=== PATIENT | female | born 1985 | race American Indian/Alaskan Native ===

== ENCOUNTER 2018-10-16 10:39 | Outpatient (CLI) | payer MEDICAID ==
[2018-10-16 11:13] VITALS: BP 131/74
[2018-10-16] MEDS ORDERED: LACTATED RINGERS 1,000 ML ONE (11:37)
[2018-10-16 12:14] LABS: Bilirubin,Urine NEG (Negative); Blood,Urine NEG (Negative); Color,Urine Amber (Yellow); Mucus,Urine 2+ /HPF
[2018-10-16] MEDS ORDERED: LACTATED RINGERS 1,000 ML IV ONE (12:51)
[2018-10-16] MEDS ORDERED: ROCEPHIN/NS 1 GM/50 ML 1 GM/50 ML BAG IV ONE (13:00)
--- NOTE | 2018-10-16 13:55 | Ultrasound Report ---
ULTRASOUND OB LIMITED HISTORY: Patient fell, evaluate for placental abruption. TECHNIQUE: Transabdominal ultrasound with color Doppler imaging. FINDINGS: A single intrauterine is identified in breech position. Heart rate measures 177 bpm. Amniot ic fluid volume appears normal. The placenta is anterior, grade 1. There is no evidence for abruption . IMPRESSION: No evidence for abruption. Signer Name: Mingo Lyon Jr, MD Signed: 10/16/2018 1:50 PM Workstation Name: [id number]
[2018-10-16 14:11] LABS: INR 1.02 (0.87-1.13)
[2018-10-16 14:12] LABS: Partial Thromboplastin Time 22.5 Sec. (24.2-36.6)
== END 2018-10-16 14:52 | disposition home or self-care (01) ==
LOC: TRG 10:39
PROVIDERS: ATTEND Obstetrics & Gynecology
DX: O26.892 Other specified pregnancy related conditions, second trimester (principal); R10.31 Right lower quadrant pain; O32.1XX0 Maternal care for breech presentation, not applicable or unspecified; O47.02 False labor before 37 completed weeks of gestation, second trimester; O99.512 Diseases of the respiratory system complicating pregnancy, second trimester; J45.909 Unspecified asthma, uncomplicated; Z3A.24 24 weeks gestation of pregnancy
CPT/HCPCS: 36415; 59025; 76815; 81001; 85610; 85730; 87086; 96365; J0696; J7120; 96360

== ENCOUNTER 2019-01-16 15:13 | Inpatient (IN) | payer MEDICAID ==
[2019-01-16] MEDS ORDERED: FAMOTIDINE 20 MG/2 ML INJ IV ONE ×2 (16:49→16:51)
[2019-01-16] MEDS ORDERED: METOCLOPRAMIDE 10 MG/2 ML INJ IV ONE (16:51)
[2019-01-16] MEDS ORDERED: BICITRA ORAL LIQD 30ML PO ONE (16:51)
[2019-01-16] MEDS ORDERED: BICITRA ORAL LIQD 30ML ONE (16:52)
[2019-01-16] MEDS ORDERED: ceFAZolin/Water 2 GM/20 ML 2 GM/20 ML SYRINGE IV NR (17:00)
[2019-01-16] MEDS ORDERED: LACTATED RINGERS 1,000 ML IV SCH (17:00)
[2019-01-16] MEDS ORDERED: OXYTOCIN 20 UNIT/1000ML DRIP 20 UNITS/1,000 ML BAG IV SCH ×2 (17:00→20:00)
[2019-01-16 17:21] LABS: Basophils % (Auto) 0.2 % (0.0-1.8); Eosinophils % (Auto) 0.2 % (0.0-4.3); Hematocrit 34.3 % (30.3-42.9); Hemoglobin 11.2 gm/dl (10.1-14.3); Lymphocytes # (Auto) 2.9 K/mm3 (1.2-5.4); Lymphocytes % (Auto) 25.6 % (13.4-35.0); Mean Corpuscular HGB Conc 33 % (30-34); Mean Corpuscular Volume 83 fl (79-97); Monocytes # (Auto) 0.6 K/mm3 (0.0-0.8); Monocytes % (Auto) 5.7 % (0.0-7.3); Platelet Count 129 K/mm3 (140-440); Red Blood Count 4.14 M/mm3 (3.65-5.03); Red Cell Distribution Width 17.5 % (13.2-15.2)
[2019-01-16] MEDS ORDERED: ONDANSETRON 4 MG/2 ML INJ IV PRN (17:43)
[2019-01-16] MEDS ORDERED: HYDROmorphone 1 MG/1 ML INJ IV PRN (17:43)
--- NOTE | 2019-01-16 17:46 | Anesthesia Consultation ---
Anesthesia Consult and Med Hx Date of service: 01/16/19 - Airway Anesthetic Teeth Evaluation: Good ROM Head & Neck: Adequate Mental/Hyoid Distance: Adequate Mallampati Class: Class III Intubation Access Assessment: Probably Good - Pulmonary Exam CTA: Yes - Cardiac Exam Cardiac Exam: RRR - Pre-Operative Health Status ASA Pre-Surgery Classification: ASA3 Proposed Anesthetic Plan: Spinal - Pre-Anesthesia Comment Pre-Anesthesia Comments: PSH: CSECTION. NO ANESTHESIA COMPLICATIONS - Pulmonary Hx Asthma: Yes (last attack 4yrs ago) Hx Respiratory Symptoms: No SOB: No COPD: No Home Oxygen Therapy: No Hx Pneumonia: No Hx Sleep Apnea: No - Cardiovascular System Hx Hypertension: Yes (PIH ) Hx Coronary Artery Disease: No Hx Heart Attack/AMI: No Hx Angina: No Hx Percutaneous Transluminal Coronary Angioplasty (PTCA): No Hx Cardia Arrhythmia: No Hx Pacemaker: No Hx Internal Defibrillator: No - Central Nervous System Hx Seizures: No Hx Psychiatric Problems: No - Endocrine Hx Renal Disease: No Hx End Stage Renal Disease: No Hx Non-Insulin Dependent Diabetes: Yes (GESTATIONAL DM) Hx Thyroid Disease: No Hx Hypothyroidism: No Hx Hyperthyroidism: No - Hematic Hx Anemia: Yes Hx Sickle Cell Disease: No - Other Systems Hx Alcohol Use: No Hx Substance Use: No Hx Cancer: No Hx Obesity: Yes (BMI 51)
[2019-01-16] MEDS ORDERED: DEXMEDETOMIDINE 200 MCG/2 ML VIAL IV ONE (17:58)
--- NOTE | 2019-01-16 18:14 | Procedure Note ---
OB Delivery Note - Delivery Date of Delivery: 01/16/19 Surgeon: MAI HERRERA Estimated blood loss: other (600ml) - Section Preop diagnosis: repeat Postop diagnosis: same section procedure: section, repeat low transverse Disposition: PACU Complications: none - Infant A at 1 minute: 8 at 5 minutes: 9 Infant Gender: Female (weight 7lbs 3oz)
--- NOTE | 2019-01-16 18:14 | History and Physical Report ---
History of Present Illness Date of examination: 01/16/19 Date of admission: 01/16/19 15:14 Chief complaint: elevated blood pressures History of present illness: 33y/o @ 37+3 weeks sent to L&D by [facility] for delivery secondary to elevated blood pressures. The patient course is complicated by GDM, morbid obesity, and prior x 2. She initiated care in the first trimester. The patient has had exposure to trichomonas during this . assessment consistent with large for gestational age. Past History Past Medical History: no pertinent history Past Surgical History: section Social history: single - Obstetrical History : 3 Para: 2 Hx # Term Pregnancies: 2 Number of Pregnancies: 0 Spontaneous Abortions: 0 Induced : 0 Number of Living Children: 2 Medications and Allergies Allergies Allergy/AdvReac Type Severity Reaction Status Date / Time No Known Allergies Allergy Verified 10/16/18 10:56 Home Medications Medication Instructions Recorded Confirmed Last Taken Type HYDROcodone/APAP 5-325 [[place] 1 each PO Q8HR PRN #14 tablet 09/17/13 01/16/19 Unknown Rx 5/325] Phenazopyridine [Pyridium] 200 mg PO PC #7 tablet 09/17/13 01/16/19 Unknown Rx Sulfamethoxazole/Trimethoprim 1 each PO BID #14 tablet 09/17/13 01/16/19 Unknown Rx [Bactrim Ds] traMADoL [Ultram] 50 mg PO Q6HR PRN #20 tablet 08/21/15 01/16/19 Unknown Rx Nitrofurantoin Nance/M-Cryst 100 mg PO Q12HR #14 capsule 10/16/18 01/16/19 Unknown Rx [Macrobid CAP] Active Meds: Active Medications Hydromorphone HCl (Dilaudid) 0.5 mg IV Q5M PRN PRN Reason: BREAK Stop: 01/16/19 23:59 Hydromorphone HCl (Dilaudid) 0.5 mg IV Q4H PRN PRN Reason: breakthrough pain > 7/10 Oxytocin/Sodium Chloride (Pitocin/Ns 20 Unit/1000ml Drip) 20 units in 1,000 mls @ 0 mls/hr IV TITR WANDA Lactated Ringer's (Lactated Ringers) 1,000 mls @ 2,250 mls/hr IV PREOP WANDA Stop: 01/17/19 17:27 Cefazolin Sodium (Ancef/Sterile Water 2 Gm/20 Ml) 2 gm in 20 mls @ 80 mls/hr IV PREOP NR; Protocol Stop: 01/17/19 16:59 Ondansetron HCl (Zofran) 4 mg IV Q8H PRN PRN Reason: Nausea And Vomiting Sodium Chloride (Sodium Chloride Flush Syringe 10 Ml) 10 ml IV PRN NR Stop: 01/17/19 17:59 Review of Systems All systems: negative - Vital Signs Vital signs: Vital Signs Temp Pulse Resp BP 97.8 F 99 H 18 150/86 01/16/19 17:17 01/16/19 17:17 01/16/19 17:17 01/16/19 17:17 Temp Pulse Resp BP Pulse Ox 97.8 F 99 H 18 150/86 01/16/19 17:17 01/16/19 17:19 01/16/19 17:17 01/16/19 17:19 - Physical Exam Breasts: Positive: deferred Cardiovascular: Regular rate Lungs: Positive: Clear to auscultation Abdomen: Positive: normal appearance Results Result Diagrams: 01/16/19 16:55 Abnormal lab results 01/16/19 Range/Units 16:55 WBC 11.3 H (4.5-11.0) K/mm3 MCH 27 L (28-32) pg RDW 17.5 H (13.2-15.2) % Plt Count 129 L (140-440) K/mm3 All other labs normal. Assessment and Plan - Patient Problems (1) Gestational hypertension Current Visit: Yes Status: Acute Plan to address problem: admit for delivery (2) Previous , delivered, current hospitalization Current Visit: Yes Status: Acute (3) Gestational diabetes Current Visit: Yes Status: Acute (4) Morbid obesity Current Visit: Yes Status: Acute
[2019-01-16] MEDS ORDERED: SODIUM CHLORIDE 0.9% IRR 1,500 ML BOTTLE IR ONE (18:31)
[2019-01-16] MEDS ORDERED: WATER FOR IRRIG STERILE 1,500 ML BOTTLE IR ONE (18:31)
[2019-01-16] MEDS ORDERED: ONDANSETRON 4 MG/2 ML INJ ONE (18:37)
[2019-01-16] MEDS ORDERED: ACETAMINOPHEN 325 MG TAB PO PRN (19:29)
[2019-01-16] MEDS ORDERED: LANOLIN/ZINC/DIMETHICONE (LANSINOH) 7 GM TP PRN (19:29)
[2019-01-16] MEDS ORDERED: WITCH HAZEL/ GLYCERIN PAD TP PRN (19:29)
[2019-01-16] MEDS ORDERED: KETOROLAC 30 MG/1 ML INJ IV PRN (19:29)
[2019-01-16] MEDS ORDERED: NALOXONE 0.4 MG/1 ML INJ IV PRN (19:29)
--- NOTE | 2019-01-16 19:29 | Operative Report ---
Operative Report Operative Report: Date of surgery: 01/16/2019 Preoperative diagnosis: at 37+3 weeks; gestational hypertension; previous deliveries; gestational diabetes; skin lipoma Postoperative diagnosis: Same as above Procedure: Repeat low transverse delivery; excision of lipoma Surgeon: Joan Hammond M.D. Anesthesia: Regional Estimated blood loss: 600 mL Pathology: Lipoma Findings: Liveborn female with Apgars of 8 and 9 weight 7 lbs. 3 oz. Indications: 33-year-old at 37+3 weeks who was admitted to labor and delivery per recommendation of maternal medicine for delivery secondary to gestational hypertension and diabetes. Procedure: The patient was taken to the operating room and given regional anesthesia without complication. She was prepped and draped in a normal sterile fashion. A Pfannenstiel skin incision was made down to layer the fascia which was nicked in the midline extended laterally with the Bovie cautery. The superior aspect of the rectus fascia was grasped with Gigi clamps x2 and the rectus muscles off sharply. This was done in inferior fashion as well. The rectus muscle midline and peritoneum entered bluntly. An Josué retractor was then inserted. A bladder blade was placed. The vesicouterine peritoneum was then entered sharply with Metzenbaum scissors. A bladder flap was created digitally. A low transverse uterine incision was then made and extended digitally. There was clear fluid upon entry into the uterine cavity. The head was delivered through the incision with fundal pressure. The cord was clamped and cut x2 and was passed off to pediatrics. The placenta was then manually extracted. The uterus was then exteriorized and cleared of clots and debris. The uterine incision was then closed in a running locked fashion with 0 Vicryl additional imbricating stitch was applied for 2 layer closure. The posterior cul-de-sac was then copiously irrigated. The uterus was replaced back into the abdomen and pelvis were the gutters were then irrigated. The Josué retractor was then removed. The peritoneum was then reapproximated with 3-0 Vicryl incorporating the rectus muscle. The fascia was then closed with 0 Vicryl in a running fashion. The skin was then reapproximated with 3-0 Monocryl on a Niko needle subcuticular fashion. Attention was then turned to a lipoma that was on the patient's right lateral side. The Bovie was used in order to excise the lesion. The skin was reapproximated in subcuticular fashion with 3-0 Vicryl. Steri-Strips were placed across the incision and a dressing was applied. Steri- Strips to place across the abdominal incision and a Crede procedures performed at the end of the surgery. A pressure dressing was applied to the incision. The surgery productive of a liveborn female with Apgars of 8 and 9 weight 7 lbs. 3 oz. The patient was taken to the recovery room in stable condition. All sponge laps and needle counts correct x2.
--- NOTE | 2019-01-16 19:48 | Anesthesia Day of Surgery ---
Anesthesia Day of Surgery - Day of Surgery Patient Examined: Yes Patient H&P Reviewed: Yes Patient is NPO: Yes Beta Blockers: No Cardiac Clearance: No Pulmonary Clearance: No Raffi's Test: N/A
--- NOTE | 2019-01-16 19:49 | Post Anesthesia Evaluation ---
- Post Anesthesia Evaluation Patient Participated: Yes Airway Patent: Yes Stable Respiratory Function: Yes Nausea/Vomiting: No Temp > 96.8F: Yes Pain Manageable: Yes Adequeate Hydration: Yes Anesthesia Complications: No Block Receding Appropriately: Yes Patient on Ventilator: No
[2019-01-16] MEDS ORDERED: D5W/LACTATED RINGERS 1,000 ML IV SCH (20:00)
[2019-01-16] MEDS: HYDROmorphone 1 MG/1 ML INJ IV PRN ×4 (20:46→22:10)
[2019-01-16] MEDS: MORPHINE 4 MG/1 ML INJ IV PRN (21:22)
[2019-01-16] MEDS: ONDANSETRON 4 MG/2 ML INJ IV PRN (23:32)
[2019-01-17] MEDS: MORPHINE 4 MG/1 ML INJ IV PRN ×2 (01:24→05:07)
[2019-01-17] MEDS: oxyCODONE /ACETAMINOPHEN 5-325MG TAB PO PRN ×4 (03:34→20:48)
[2019-01-17] MEDS ORDERED: LACTATED RINGERS 1,000 ML IV SCH (05:00)
--- NOTE | 2019-01-17 08:16 | Progress Note ---
Assessment and Plan POD1 s/p RLTCS and lipoma excision Awaiting pp H&H VSS Breast feeding education D/c to home on POD3 Subjective - Subjective Date of service: 01/17/19 Principal diagnosis: s/p RLTCS Interval history: Pt is POD1 s/p repeat LTCS and lipoma excision Patient reports: appetite normal, voiding normally, pain well controlled, no flatus : doing well, bottle feeding (pt wants to breast feed) Objective - Vital Signs Latest vital signs: Vital Signs Temp Pulse Resp BP BP Pulse Ox 01/17/19 05:07 18 01/17/19 04:00 98.7 F 77 18 119/62 01/17/19 03:34 18 01/17/19 01:24 18 01/16/19 23:00 98.7 F 69 18 130/71 01/16/19 22:36 98.1 F 81 18 133/71 100 01/16/19 21:46 97.7 F 73 21 124/61 98 01/16/19 21:31 80 13 143/68 99 01/16/19 21:02 92 H 15 136/72 100 01/16/19 20:48 77 13 111/69 100 01/16/19 20:46 14 01/16/19 20:31 97.6 F 81 15 120/66 100 01/16/19 20:20 88 15 117/60 100 01/16/19 19:55 91 H 13 114/42 100 01/16/19 19:45 81 18 139/68 100 01/16/19 19:40 97.7 F 81 14 139/68 100 01/16/19 17:19 99 H 150/86 01/16/19 17:17 97.8 F 99 H 18 150/86 Intake and Output 01/16/19 01/17/19 01/17/19 23:59 07:59 15:59 Intake Total 1300 Output Total 300 1400 Balance 1000 -1400 Intake: IV 1300 Output: Urine 300 1400 Indwelling Catheter 1400 Uretheral (Ya) 100 Other: Total, Output Amount 1400 Weight 302 lb Estimated Blood Loss 600 - Exam Lungs: Present: Normal air movement Abdomen: Present: normal appearance, soft Uterus: Present: normal, firm, fundal height at umbilicus Extremities: Present: normal Incision: Present: dressed - Labs Labs: Abnormal lab results 01/16/19 Range/Units 16:55 WBC 11.3 H (4.5-11.0) K/mm3 MCH 27 L (28-32) pg RDW 17.5 H (13.2-15.2) % Plt Count 129 L (140-440) K/mm3
[2019-01-17 08:34] LABS: Hematocrit 32.9 % (30.3-42.9); Hemoglobin 10.6 gm/dl (10.1-14.3)
[2019-01-17] MEDS: ONDANSETRON 4 MG/2 ML INJ IV PRN (10:27)
[2019-01-17] MEDS: IBUPROFEN 800 MG TAB PO PRN (11:15)
[2019-01-17] MEDS: MAGNESIUM HYDROXIDE (MOM) ORAL LIQD UDC PO PRN (14:23)
[2019-01-18] MEDS: oxyCODONE /ACETAMINOPHEN 5-325MG TAB PO PRN ×4 (00:46→19:37)
[2019-01-18] MEDS: IBUPROFEN 800 MG TAB PO PRN (07:55)
--- NOTE | 2019-01-18 14:27 | Progress Note ---
Assessment and Plan A/P POD2 s/p RLTCS and lipoma excision h/h 11.2-10.6 VSS Breast feeding education Discharge home tomorrow Subjective - Subjective Date of service: 01/18/19 Principal diagnosis: s/p RLTCS Patient reports: appetite normal, voiding normally, pain well controlled, flatus, ambulating normally [place]: doing well Objective - Vital Signs Latest vital signs: Vital Signs Temp Pulse Resp BP Pulse Ox 01/18/19 14:22 20 01/18/19 08:24 98.4 F 83 18 142/79 99 01/18/19 07:55 20 01/18/19 05:48 20 01/18/19 01:02 97.8 F 81 20 137/56 100 01/18/19 00:46 20 01/17/19 20:48 20 01/17/19 16:42 97.6 F 69 20 106/57 100 Intake and Output 01/17/19 01/18/19 01/18/19 23:59 07:59 15:59 Intake Total 720 620 720 Output Total 800 Balance 720 -180 720 Intake: Oral 360 Intake, Free Water 360 620 720 Output: Urine 800 Void 800 Other: Total, Intake Amount 360 Total, Output Amount 800 # Voids Void 400 1 - Exam Breasts: Present: normal Cardiovascular: Present: Regular rate, Normal S1 Lungs: Present: Clear to auscultation, Normal air movement Abdomen: Present: normal appearance, soft, normal bowel sounds. Absent: distention, tenderness, guarding Uterus: Present: normal, firm, fundal height below umbilicus. Absent: bogginess, tenderness Extremities: Present: normal Deep Tendon Reflex Grade: Normal +2 Incision: Present: normal, dry, intact
[2019-01-19] MEDS: oxyCODONE /ACETAMINOPHEN 5-325MG TAB PO PRN ×3 (00:04→23:15)
[2019-01-19] MEDS: IBUPROFEN 800 MG TAB PO PRN ×2 (05:33→17:46)
--- NOTE | 2019-01-19 09:43 | Progress Note ---
Assessment and Plan A/P POD 3 s/p RLTCS and lipoma excision h/h 11.2-10.6 VSS Discharge home today Subjective - Subjective Date of service: 01/19/19 Principal diagnosis: s/p RLTCS Patient reports: appetite normal, voiding normally, pain well controlled, flatus, ambulating normally [place]: doing well Objective - Vital Signs Latest vital signs: Vital Signs Temp Pulse Resp BP Pulse Ox 01/19/19 08:16 97.8 F 89 18 142/79 98 01/19/19 01:42 97.9 F 81 20 119/60 94 01/18/19 17:29 98.1 F 95 H 18 128/84 98 01/18/19 14:22 20 Intake and Output 01/18/19 01/19/19 01/19/19 23:59 07:59 15:59 Intake Total 840 Balance 840 Intake: Intake, Free Water 840 Other: # Voids Void 2 1 - Exam Breasts: Present: normal Cardiovascular: Present: Regular rate, Normal S1 Lungs: Present: Clear to auscultation, Normal air movement Abdomen: Present: normal appearance, soft, normal bowel sounds. Absent: distention, tenderness, guarding Vulva: both: normal Uterus: Present: normal, firm, fundal height below umbilicus. Absent: bogginess, tenderness Extremities: Present: normal Deep Tendon Reflex Grade: Normal +2 Incision: Present: normal, dry, intact
--- NOTE | 2019-01-19 09:45 | Discharge Summary ---
Providers - Providers Date of Admission: 01/16/19 15:14 Date of discharge: 01/19/19 Attending physician: MAI HERRERA Primary care physician: MAI HERRERA Hospitalization Reason for admission: section Delivery: Procedure: section Episiotomy: none Laceration: none Incision: normal, dry, intact Other procedures: none complications: none Discharge diagnosis: IUP at term delivered baby: female Hospital course: patient sustained a repeat csec and did well PP. F/u in 2 weeks for incision check Condition at discharge: Good Disposition: DC-01 TO HOME OR SELFCARE Plan - Discharge Medications Prescriptions: Ibuprofen [Motrin] 600 mg PO Q8H PRN #30 tablet PRN Reason: Pain oxyCODONE /ACETAMINOPHEN [Percocet 5/325] 1 tab PO Q6HR PRN #40 tablet PRN Reason: Pain - Provider Discharge Summary Activity: routine, no sex for 6 weeks, no strenuous exercise Diet: routine Instructions: routine Additional instructions: [] Smoking cessation referral if applicable(refer to patient education folder for contact #) [] Refer to [facility]'s [facility] Booklet Call your doctor immediately for: * Fever > 100.5 * Heavy vaginal bleeding ( >1 pad per hour) * Severe persistent headache * Shortness of breath * Reddened, hot, painful area to leg or breast * Drainage or odor from incision. * Keep incision clean and dry at all times and follow doctor's instructions regarding bathing/showering - Follow up plan Follow up: MAI HERRERA MD [Primary Care Provider] - 14 Days
[2019-01-19] MEDS: MAGNESIUM HYDROXIDE (MOM) ORAL LIQD UDC PO PRN (11:36)
[2019-01-19 16:06] LABS: Hemoglobin 10.2 gm/dl (10.1-14.3); Mean Corpuscular HGB Conc 33 % (30-34); Mean Corpuscular Volume 84 fl (79-97); Platelet Count 129 K/mm3 (140-440); Red Cell Distribution Width 17.4 % (13.2-15.2)
[2019-01-19 16:22] LABS: Alanine Aminotransferase 11 units/L (7-56); Uric Acid 5.9 mg/dL (3.5-7.6)
[2019-01-19 18:50] LABS: Bacteria,Urine 1+ /HPF (Negative); Bilirubin,Urine NEG (Negative); Blood,Urine LG (Negative); Color,Urine Yellow (Yellow); Mucus,Urine FEW /HPF; Protein,Urine <15 mg/dL mg/dL (Negative); Urobilinogen,Urine < 2.0 mg/dL (<2.0)
[2019-01-19 18:52] LABS: RBC,Urine > 182.0 /HPF (0.0-6.0)
[2019-01-20] MEDS: IBUPROFEN 800 MG TAB PO PRN ×2 (05:08→11:59)
[2019-01-20] MEDS: MAGNESIUM HYDROXIDE (MOM) ORAL LIQD UDC PO PRN (05:21)
[2019-01-20] MEDS: oxyCODONE /ACETAMINOPHEN 5-325MG TAB PO PRN ×2 (08:30→14:11)
[2019-01-20] MEDS ORDERED: NITROFURANTOIN MONOHYD/M-CRYST 100 MG CAP PO SCH (10:00)
[2019-01-20 16:08] VITALS: BP 129/64
== END 2019-01-20 16:15 | disposition home or self-care (01) | DRG 766 ==
LOC: TRG 15:13 → LD 15:14 → TRG 15:14 → LD 17:04 → OB 22:21
PROVIDERS: ADMIT Obstetrics & Gynecology; ATTEND Obstetrics & Gynecology
PROC: 10D00Z1 Extraction of Products of Conception, Low, Open Approach (ICD-10-PCS; principal; 2019-01-16)
PROC: 0JB80ZZ Excision of Abdomen Subcutaneous Tissue and Fascia, Open Approach (ICD-10-PCS; 2019-01-16)
DX: O34.211 Maternal care for low transverse scar from previous cesarean delivery (principal); E66.01 Morbid (severe) obesity due to excess calories; O99.214 Obesity complicating childbirth; O13.4 Gestational [pregnancy-induced] hypertension without significant proteinuria, complicating childbirth; O24.429 Gestational diabetes mellitus in childbirth, unspecified control; O99.52 Diseases of the respiratory system complicating childbirth; J45.909 Unspecified asthma, uncomplicated; D17.30 Benign lipomatous neoplasm of skin and subcutaneous tissue of unspecified sites; O65.5 Obstructed labor due to abnormality of maternal pelvic organs; Z3A.37 37 weeks gestation of pregnancy; Z37.0 Single live birth; Z79.899 Other long term (current) drug therapy
CPT/HCPCS: 36415; 81001; 82565; 83615; 84450; 84460; 84550; 85014; 85018; 85025; 85027; 86850; 86900; 86901; 87086; 88304; 93005; 93010; G0378; J0690; J1170; J2270; J2405; J2590; J2765; J3490; J7120

== ENCOUNTER 2020-12-02 06:57 | Day surgery (SDC) | payer MEDICAID ==
[~2020-12-02 06:57] MED LIST: ACETAMINOPHEN 500 MG TAB PO SCH; GABAPENTIN 300 MG CAP PO NR; MIDAZOLAM 2 MG/2 ML INJ IV NR; SCOPOLAMINE TRANSDERMAL PATCH 72 HR TD NR
[2020-12-02] MEDS: LACTATED RINGERS 1,000 ML IV SCH ×2 (07:10→13:30)
--- NOTE | 2020-12-02 07:32 | Anesthesia Day of Surgery ---
Anesthesia Day of Surgery - Day of Surgery Patient Examined: Yes Patient H&P Reviewed: Yes Patient is NPO: Yes Beta Blockers: No Cardiac Clearance: No Pulmonary Clearance: No Raffi's Test: N/A
--- NOTE | 2020-12-02 07:33 | Anesthesia Consultation ---
Anesthesia Consult and Med Hx Date of service: 12/02/20 - Airway Anesthetic Teeth Evaluation: Chipped ROM Head & Neck: Adequate Mental/Hyoid Distance: Adequate Mallampati Class: Class II Intubation Access Assessment: Probably Good - Pulmonary Exam CTA: Yes - Cardiac Exam Cardiac Exam: RRR - Pre-Operative Health Status ASA Pre-Surgery Classification: ASA2 Proposed Anesthetic Plan: General (C/S x3, ankle sx, chipped upper r tooth) - Pulmonary Hx Smoking: No (MARIJUANA Q2DAYS 2 JOINTS) Hx Asthma: Yes (As a child) Hx Respiratory Symptoms: No SOB: No COPD: No Hx Pneumonia: No Hx Sleep Apnea: No - Cardiovascular System Hx Hypertension: No Hx Coronary Artery Disease: No Hx Heart Attack/AMI: No Hx Angina: No Hx Percutaneous Transluminal Coronary Angioplasty (PTCA): No Hx Cardia Arrhythmia: No Hx Pacemaker: No Hx Internal Defibrillator: No Hx Heart Murmur: No - Central Nervous System Hx Seizures: No Hx Back Pain: Yes Hx Psychiatric Problems: No - Endocrine Hx Renal Disease: No Hx End Stage Renal Disease: No Hx Cirrhosis: No Hx Liver Disease: No Hx Non-Insulin Dependent Diabetes: Yes (GESTATIONAL DM) Hx Thyroid Disease: No Hx Hypothyroidism: No Hx Hyperthyroidism: No - Hematic Hx Anemia: Yes Hx Sickle Cell Disease: No - Other Systems Hx Alcohol Use: Yes (Occas) Hx Substance Use: Yes (Marijuana 2-3 times per week) Hx Cancer: No Hx Obesity: Yes
[2020-12-02] MEDS ORDERED: ROCURONIUM 50 MG/5 ML INJ IV ONE (07:38)
[2020-12-02] MEDS ORDERED: LIDOCAINE MPF (2%) 20 MG/1 ML VIAL 5 ML ONE (07:38)
[2020-12-02] MEDS ORDERED: propofoL 200 MG/20 ML VIAL IV ONE (07:38)
[2020-12-02] MEDS ORDERED: LIDOCAINE 1%/EPINEPHRINE 1:100,000 VIAL (20 ML) INFILTRATI ONE ×2 (07:54→08:59)
[2020-12-02] MEDS ORDERED: SODIUM CHLORIDE 0.9% 1000 ML 1,000 ML, EPINEPHrine/PF 1 mg/1 mL 1 MG, LIDOCAINE 1% 20 m... IJ SCH (08:00)
[2020-12-02] MEDS ORDERED: oxyCODONE /ACETAMINOPHEN 5-325MG TAB PO PRN (08:00)
[2020-12-02] MEDS ORDERED: ONDANSETRON 4 MG/2 ML INJ IV PRN (08:00)
[2020-12-02] MEDS ORDERED: ceFAZolin 1 GM VIAL ONE ×2 (08:13→12:02)
[2020-12-02] MEDS ORDERED: SODIUM CHLORIDE 0.9% IRR 1,500 ML BOTTLE IR ONE (08:59)
[2020-12-02] MEDS ORDERED: HYDROmorphone 1 MG/1 ML INJ ONE (09:05)
[2020-12-02] MEDS ORDERED: LIDOCAINE (1%) 10 MG/1 ML VIAL 20 ML MDV INFILTRATI ONE (09:25)
[2020-12-02] MEDS ORDERED: EPINEPHrine/PF 1 MG/1 ML INJ IV ONE (09:30)
[2020-12-02] MEDS ORDERED: SODIUM CHLORIDE 0.9% 1000 ML IV SOLN IV ONE (09:31)
[2020-12-02] MEDS ORDERED: dexAMETHasone 20 MG/5 ML VIAL ONE (11:30)
[2020-12-02] MEDS ORDERED: ONDANSETRON 4 MG/2 ML INJ ONE ×2 (12:19)
[2020-12-02] MEDS: HYDROmorphone 1 MG/1 ML INJ IV PRN ×4 (13:15→13:54)
--- NOTE | 2020-12-02 13:20 | Operative Report ---
Operative Report Operative Report: Preoperative Diagnosis: Symptomatic bilateral macromastia Post Operative Diagnosis: Same Procedure: Bilateral breast reduction Surgeon: Dr. Laura Ramírez Packerhead Machine Operator: Clare Mclaughlin Anesthesia: General Specimens: Right and left breast tissue, excised EBL: 200cc Indications: This patient is a 35 year old female who presented with musculoskeletal complaints due to her large breasts. She was approved for breast reduction to alleviate her symptoms. The benefits and risks of surgery were discussed in detail with the patient who expressed her understanding. Informed consent was obtained. Procedure: After review of pertinent history and physical exam findings the patient was marked in preop holding and brought into the operating room and placed supine on the OR table. After induction of adequate general anesthesia the patient's chest was prepped and draped in the usual sterile surgical fas hion. To begin, mcdaniel were refreshed and measurements double checked and we reduced the right breast as follows: A 9cm inferior pedicle was outlined and de-epithelialized save the nipple and areola complex, which was measured out using a 4.2 cm diameter and left completely attached to the inferior pedicle. After this, following a [place] pattern, skin incisions were made to elevate breast flaps superiorly and excise excess tissue on the medial and lateral aspect of the pedicle. Hemostasis was maintained with electrocautery. Saline solution was then used to irrigate the breast tissue and, satisfied with hemostasis and volume, we began to a 3-layered closure using 2-0 Monocryl and 3-0 Monoderm sutures. The same procedure was performed on the left side, with tissue re- arrangement and excision based on an inferior pedicle being performed to preserve the nipple areolar complex and as much breast tissue as possible for symmetry. Tissue excised: 560 right breast; 540g on the left. Once all incisions were closed, they were sealed with Dermabond and dressed with ABD pads and a surgical bra. The patient was then awakened from general anesthesia and transferred to PACU in stable condition. There were no complications. All sponge needle and instrument counts were correct at the end of the case.
[2020-12-02] MEDS ORDERED: diphenhydrAMINE 50 MG/ML VIAL IV PRN (14:20)
[2020-12-02] MEDS ORDERED: diphenhydrAMINE 50 MG/ML VIAL ONE (14:21)
[2020-12-02 15:45] VITALS: BP 136/84
--- NOTE | 2020-12-02 15:52 | Post Anesthesia Evaluation ---
- Post Anesthesia Evaluation Patient Participated: Yes Airway Patent: Yes Stable Respiratory Function: Yes Nausea/Vomiting: Yes (resolved with IV antiemetic) Temp > 96.8F: Yes Pain Manageable: Yes Adequeate Hydration: Yes Anesthesia Complications: No
== END 2020-12-02 15:30 | disposition home or self-care (01) ==
LOC: OR 06:57
PROVIDERS: ATTEND Plastic Surgery
DX: N62 Hypertrophy of breast (principal); R92.8 Other abnormal and inconclusive findings on diagnostic imaging of breast; E11.9 Type 2 diabetes mellitus without complications; J45.909 Unspecified asthma, uncomplicated; E66.01 Morbid (severe) obesity due to excess calories; Z79.899 Other long term (current) drug therapy; Z98.890 Other specified postprocedural states; Z20.822 Contact with and (suspected) exposure to COVID-19; Z82.49 Family history of ischemic heart disease and other diseases of the circulatory system; Z68.42 Body mass index [BMI] 45.0-49.9, adult
CPT/HCPCS: 19318; 81025; 88305; J0171; J0690; J1100; J1170; J1200; J2250; J2405; J2704; J7030; J7120; U0003